=== PATIENT | male | born 1960 | race Caucasian/White ===

== ENCOUNTER 2018-07-27 07:12 | Day surgery (SDC) | payer OTHER ==
[2018-07-25 10:10] VITALS: BMI 25.1
[~2018-07-27 07:12] MED LIST: LACTATED RINGERS 1,000 ML IV SCH; LIDOCAINE 1% 20 ML VIAL (10MG/ML) FOR IV START INTRADERMA PRN
[2018-07-27 08:11] VITALS: TEMP 97.7
[2018-07-27] MEDS ORDERED: LIDOCAINE 1% INJ 10MG/ML (20 ML MDV) ONE (08:54)
[2018-07-27] MEDS ORDERED: PROPOFOL 10 MG/ML 20 ML VIAL IV ONE (08:54)
--- NOTE | 2018-07-27 09:02 | P.PCN ---
Date of Procedure: 07/27/18 Procedure(s) Performed: BRIEF HISTORY: Patient is a 58-year-old, pleasant, white male, scheduled for an upper endoscopy as part of evaluation of globus sensation in his throat area. For the last 1 year duration. He was treated for acid reflux with Prilosec for 4 weeks and no help. He had ENT evaluation and was noted to have Dede infection for which was treated with antifungal agents for 2 weeks with no help. Because of the persistent symptoms he scheduled for an upper endoscopy to evaluate further. PROCEDURE PERFORMED: Esophagogastroduodenoscopy with biopsy. PREOPERATIVE DIAGNOSIS: Globus sensation in the throat area of 1 year duration. IV sedation per anesthesia. PROCEDURE: After informed consent was obtained, the patient was brought into the endoscopy unit. IV sedation was administered by Anesthesia under continuous monitoring. Initially the Olympus GIF-140 video endoscope was inserted into the mouth. Esophagus intubated without any difficulty. It was gradually advanced into the stomach and duodenum and carefully examined. The bulb and the second part of the duodenum appeared normal. The scope at this time was withdrawn to the stomach, adequately insufflated with air, and upon careful examination, mucosa of the antrum had patchy areas of erythema consistent gastritis and biopsies were done from this area. The body, cardia and the fundus appeared normal. The scope was then withdrawn into the esophagus. The GE junction was located at 39 cm from the incisors. Small sign Hiatal hernia noted. The esophagus appeared normal. There were no erosions or ulcerations seen. Biopsies were done from the distal esophagus and the patient tolerated the procedure well. IMPRESSION: 1. Mild antral gastritis. 2. Small sliding Hiatal hernia but no evidence of esophagitis or esophageal stricture. RECOMMENDATIONS: The findings of this examination were discussed with the anika dowd as well as his family. He was advised to follow with the biopsy results..
[2018-07-27 09:26] VITALS: BP 113/72; PULSE 52; RESP 18
== END 2018-07-27 09:40 | disposition home or self-care (01) ==
LOC: ORWHC2ENDO 07:12
PROVIDERS: ATTEND Internal Medicine Gastroenterology
DX: K29.50 Unspecified chronic gastritis without bleeding (principal); K21.0 Gastro-esophageal reflux disease with esophagitis; K44.9 Diaphragmatic hernia without obstruction or gangrene; Z79.899 Other long term (current) drug therapy
CPT/HCPCS: 88305; 43239; J2001; J2704

== ENCOUNTER 2019-02-18 22:11 | Emergency (ER) | payer OTHER ==
[2019-02-18 22:24] VITALS: TEMP 97.3
[2019-02-18] MEDS ORDERED: SODIUM CHLORIDE 0.9% 1,000 ML IV STA (22:31)
--- NOTE | 2019-02-18 23:09 | ED ---
General Adult HPI - General Chief complaint: Weakness Stated complaint: syncope Time Seen by Provider: 02/18/19 22:31 Source: patient, EMS, RN notes reviewed Mode of arrival: EMS - History of Present Illness Initial comments: 58-year-old male with a past medical history of GERD presents to the emergency department for episode of syncope. Patient's states that the were having a movie night. States that they were watching a scary movie that had blood and gore. States that she was looking away from the screen however he must have been staring at the screen when he had a syncopal episode. States that it took him about 10 seconds to wake up. Patient is having any chest pain or shortness of breath preceding this. They state he started to feel lightheaded before he had his syncopal episode. Patient denies any symptoms at this time. States he is feeling back to his normal self.Patient has no other complaints at this time including shortness of breath, chest pain, abdominal pain, nausea or vomiting, headache, or visual changes. - Related Data Home Medications Medication Instructions Recorded Confirmed Multivitamins, Thera [Multivitamin 1 tab PO HS 07/25/18 02/18/19 (formulary)] [place]-3 Fatty Acids/Fish Oil [Fish 1 cap PO HS 07/25/18 02/18/19 Oil 1,000 mg Softgel] Allergies Allergy/AdvReac Type Severity Reaction Status Date / Time No Known Allergies Allergy Verified 02/18/19 22:30 Review of Systems ROS Statement: Those systems with pertinent positive or pertinent negative responses have been documented in the HPI. ROS Other: All systems not noted in ROS Statement are negative. Past Medical History Past Medical History: GERD/Reflux Additional Past Medical History / Comment(s): "feels like there is something in the back of my throat all the time, like a popcorn kernel present" History of Any Multi-Drug Resistant Organisms: None Reported Past Surgical History: Hernia Repair, Orthopedic Surgery Additional Past Surgical History / Comment(s): oksana inguinal hernia,torn meniscus repair Past Anesthesia/Blood Transfusion Reactions: No Reported Reaction Additional Past Anesthesia/Blood Transfusion Reaction / Comment(s): no hx blood transfusion Smoking Status: Former smoker Past Alcohol Use History: Occasional Past Drug Use History: None Reported - Past Family History Mother Family Medical History: Cancer Additional Family Medical History / Comment(s): breast Father Family Medical History: Cancer Additional Family Medical History / Comment(s): lung General Exam General appearance: alert, in no apparent distress Head exam: Present: atraumatic, normocephalic, normal inspection Eye exam: Present: normal appearance, PERRL, EOMI. Absent: scleral icterus, conjunctival injection, periorbital swelling ENT exam: Present: normal exam, mucous membranes moist Neck exam: Present: normal inspection, full ROM. Absent: tenderness, meningismus, lymphadenopathy Respiratory exam: Present: normal lung sounds bilaterally. Absent: respiratory distress, wheezes, rales, rhonchi, stridor Cardiovascular Exam: Present: regular rate, normal rhythm, normal heart sounds. Absent: systolic murmur, diastolic murmur, rubs, gallop, clicks GI/Abdominal exam: Present: soft, normal bowel sounds. Absent: distended, tenderness, guarding, rebound, rigid Neurological exam: Present: alert Psychiatric exam: Present: normal affect, normal mood Course Vital Signs 02/18/19 22:13 Temperature 97.3 F L Pulse Rate 62 Respiratory 18 Rate Blood Pressure 101/63 O2 Sat by Pulse 100 Oximetry EKG Findings - EKG Comments: EKG Findings:: Sinus bradycardia, ventricular rate 53, NH interval 162, QTC 426 Medical Decision Making - Medical Decision Making Vitals are stable. Patient has a heart rate of 62 and a blood pressure of 101/63. States his blood pressure normally runs around this area. He is a well-appearing well-nourished male. Nontoxic. EKG is unremarkable. Sinus bradycardia with a ventricular rate of 53. CBC CMP unremarkable as patient does show evidence of dehydration with a BUN to creatinine ratio of 24. Patient was given fluids. Troponin is negative. Chest x-ray shows no acute cardiopulmonary process. Given the event history patient likely had a vasovagal syncope. Patient will be discharged home. He will follow up with primary care in 1-2 days. He'll return here if he has any worsening symptoms.I discussed this case with attending Dr. Dubois who agrees with this assessment and treatment plan. - Lab Data Result diagrams: 02/18/19 22:31 02/18/19 22:31 Lab Results 02/18/19 02/18/19 02/18/19 Range/Units 22:31 22:31 22:31 WBC 8.5 (3.8-10.6) k/uL RBC 4.38 (4.30-5.90) m/uL Hgb 14.6 (13.0-17.5) gm/dL Hct 41.4 (39.0-53.0) % MCV 94.5 (80.0-100.0) fL MCH 33.4 (25.0-35.0) pg MCHC 35.4 (31.0-37.0) g/dL RDW 12.1 (11.5-15.5) % Plt Count 216 (150-450) k/uL Neutrophils % 56 % Lymphocytes % 33 % Monocytes % 5 % Eosinophils % 4 % Basophils % 1 % Neutrophils # 4.7 (1.3-7.7) k/uL Lymphocytes # 2.8 (1.0-4.8) k/uL Monocytes # 0.4 (0-1.0) k/uL Eosinophils # 0.4 (0-0.7) k/uL Basophils # 0.0 (0-0.2) k/uL PT 9.9 (9.0-12.0) sec INR 0.9 (<1.2) APTT 21.9 L (22.0-30.0) sec Sodium 139 (137-145) mmol/L Potassium 3.8 (3.5-5.1) mmol/L Chloride 104 (98-107) mmol/L Carbon Dioxide 25 (22-30) mmol/L Anion Gap 10 mmol/L BUN 24 H (9-20) mg/dL Creatinine 0.98 (0.66-1.25) mg/dL Est GFR (CKD-EPI)AfAm >90 (>60 ml/min/1.73 sqM) Est GFR (CKD-EPI)NonAf 87 (>60 ml/min/1.73 sqM) Glucose 93 (74-99) mg/dL Calcium 9.8 (8.4-10.2) mg/dL Magnesium 2.1 (1.6-2.3) mg/dL Total Bilirubin 0.3 (0.2-1.3) mg/dL AST 32 (17-59) U/L ALT 26 (21-72) U/L Alkaline Phosphatase 44 (38-126) U/L Troponin I (0.000-0.034) ng/mL Total Protein 7.2 (6.3-8.2) g/dL Albumin 4.5 (3.5-5.0) g/dL 02/18/19 Range/Units 22:31 WBC (3.8-10.6) k/uL RBC (4.30-5.90) m/uL Hgb (13.0-17.5) gm/dL Hct (39.0-53.0) % MCV (80.0-100.0) fL MCH (25.0-35.0) pg MCHC (31.0-37.0) g/dL RDW (11.5-15.5) % Plt Count (150-450) k/uL Neutrophils % % Lymphocytes % % Monocytes % % Eosinophils % % Basophils % % Neutrophils # (1.3-7.7) k/uL Lymphocytes # (1.0-4.8) k/uL Monocytes # (0-1.0) k/uL Eosinophils # (0-0.7) k/uL Basophils # (0-0.2) k/uL PT (9.0-12.0) sec INR (<1.2) APTT (22.0-30.0) sec Sodium (137-145) mmol/L Potassium (3.5-5.1) mmol/L Chloride (98-107) mmol/L Carbon Dioxide (22-30) mmol/L Anion Gap mmol/L BUN (9-20) mg/dL Creatinine (0.66-1.25) mg/dL Est GFR (CKD-EPI)AfAm (>60 ml/min/1.73 sqM) Est GFR (CKD-EPI)NonAf (>60 ml/min/1.73 sqM) Glucose (74-99) mg/dL Calcium (8.4-10.2) mg/dL Magnesium (1.6-2.3) mg/dL Total Bilirubin (0.2-1.3) mg/dL AST (17-59) U/L ALT (21-72) U/L Alkaline Phosphatase (38-126) U/L Troponin I <0.012 (0.000-0.034) ng/mL Total Protein (6.3-8.2) g/dL Albumin (3.5-5.0) g/dL Disposition Clinical Impression: Vasovagal syncope Disposition: HOME SELF-CARE Condition: Good Instructions (If sedation given, give patient instructions): Syncope (ED) Additional Instructions: Please drink plenty of fluids. Follow-up with primary care in 1-2 days. If you have any worsening symptoms or recurring episodes of syncope return to the emergency department. Is patient prescribed a controlled substance at d/c from ED?: No Referrals: Get Mcintyre MD [Primary Care Provider] - 1-2 days Time of Disposition: 00:13
[2019-02-18 23:12] LABS: Basophils % (A) 1 %; Eosinophils # (A) 0.4 k/uL (0-0.7); Eosinophils % (A) 4 %; HCT 41.4 % (39.0-53.0); HGB 14.6 gm/dL (13.0-17.5); Lymphocytes # (A) 2.8 k/uL (1.0-4.8); Lymphocytes % (A) 33 %; MCH 33.4 pg (25.0-35.0); MCHC 35.4 g/dL (31.0-37.0); MCV 94.5 fL (80.0-100.0); Mean Platelet Volume 6.3; Monocytes # (A) 0.4 k/uL (0-1.0); Monocytes % (A) 5 %; Neutrophils # (A) 4.7 k/uL (1.3-7.7); Neutrophils % (A) 56 %; Platelet Count 216 k/uL (150-450); RBC 4.38 m/uL (4.30-5.90); RDW 12.1 % (11.5-15.5); WBC 8.5 k/uL (3.8-10.6)
[2019-02-18 23:23] LABS: ALT 26 U/L (21-72); AST 32 U/L (17-59); African American GFR (CKD) >90 (>60 ml/min/1.73 sqM); Albumin 4.5 g/dL (3.5-5.0); Alkaline Phosphatase 44 U/L (38-126); Anion Gap 10 mmol/L; Blood Urea Nitrogen 24 mg/dL (9-20); Calcium 9.8 mg/dL (8.4-10.2); Carbon Dioxide 25 mmol/L (22-30); Chloride 104 mmol/L (98-107); Glucose 93 mg/dL (74-99); Magnesium 2.1 mg/dL (1.6-2.3); Potassium 3.8 mmol/L (3.5-5.1); Sodium 139 mmol/L (137-145); Total Bilirubin 0.3 mg/dL (0.2-1.3); Total Protein 7.2 g/dL (6.3-8.2)
[2019-02-18 23:36] LABS: INR 0.9 (<1.2); Prothrombin Time 9.9 sec (9.0-12.0)
[2019-02-18 23:37] LABS: Partial Thromboplastin Time 21.9 sec (22.0-30.0)
--- NOTE | 2019-02-18 23:50 | XR ---
EXAMINATION TYPE: XR chest 2V DATE OF EXAM: 02/18/2019 COMPARISON: NONE HISTORY: Syncope TECHNIQUE: Frontal and lateral views of the chest are obtained. FINDINGS: Heart and mediastinum are normal. Lungs are clear. Diaphragm is normal. There are chest le ads. Bony thorax is intact. IMPRESSION: No active cardiopulmonary disease. Normal heart.
[2019-02-19 00:46] VITALS: BP 97/67; PULSE 60; RESP 16
== END 2019-02-19 00:47 | disposition home or self-care (01) ==
LOC: EC 22:11
DX: R55 Syncope and collapse (principal); E86.0 Dehydration; R00.1 Bradycardia, unspecified; Z87.891 Personal history of nicotine dependence
CPT/HCPCS: 36415; 71046; 80053; 83735; 84484; 85025; 85610; 85730; 93005; 96360; 99285